=== PATIENT | female | born 1960 | race Caucasian/White ===

== ENCOUNTER 2019-03-04 17:49 | Inpatient (IN) | payer BC ==
[2019-03-04] MEDS ORDERED: ENOXAPARIN 100 MG/ML SYR SQ ONE (18:13)
[2019-03-04] MEDS ORDERED: METOPROLOL TAR 50 MG TAB ONE (18:13)
[2019-03-04] MEDS ORDERED: NA CHLORIDE 0.9% 1,000 ML ONE (18:14)
[2019-03-04] MEDS ORDERED: METOPROLOL TARTRATE 5 MG/5 ML INJ IV ONE (18:14)
[2019-03-04 18:32] LABS: Protime INR 0.97
[2019-03-04 18:33] LABS: Absolute Lymphocytes (CBC) 2.3 K/uL (0.7-4.9); Basophils % 0.8 % (0-1.3); Hematocrit 43.6 % (36.0-45.0); Lymphocytes % 21.7 % (15.3-44.8); MPV 8.5 fL (7.6-11.3); RBC Red Blood Cell Count 5.23 M/uL (3.86-4.86)
--- NOTE | 2019-03-04 18:46 | RAD REPORT ---
EXAM DESCRIPTION: RAD - Chest Single View - 03/04/2019 6:22 pm CLINICAL HISTORY: Chest pain, palpitations COMPARISON: None. TECHNIQUE: AP portable chest image was obtained 1818 hours . FINDINGS: Lungs are clear. Heart and vasculature are normal. No measurable pleural effusion and no p neumothorax. No acute bony abnormality seen. No acute aortic findings suspected. IMPRESSION: No acute cardiopulmonary process.
[2019-03-04 18:56] LABS: ALT/SGPT 28 U/L (12-78); AST/SGOT 24 U/L (15-37); Albumin 3.5 g/dL (3.4-5.0); Alkaline Phosphatase 78 U/L (45-117); BUN Blood Urea Nitrogen 26 mg/dL (7-18); Bicarbonate 31 mmol/L (21-32); Bilirubin Direct < 0.1 mg/dL (0-0.2); Bilirubin Total 0.3 mg/dL (0.2-1.0); Glucose Level 88 mg/dL (74-106); Magnesium 2.5 mg/dL (1.8-2.4); NT PRO-BNP 87 pg/mL (<125); Potassium 3.5 mmol/L (3.5-5.1); Protein, Total 7.6 g/dL (6.4-8.2); Sodium Level 144 mmol/L (136-145); Troponin (Emerg Dept Use Only) < 0.02 ng/mL (0.0-0.045)
--- NOTE | 2019-03-04 19:55 | ER ---
Nurse's Notes [facility] Name: Suzanne Victoria Age: 58 yrs Sex: Female : 1960 Arrival Date: 03/04/2019 Time: 17:54 Bed 18 Private MD: Diagnosis: Atrial fibrillation and flutter-new onset Presentation: 03/04 17:55 Presenting complaint: Patient states: my daughter did my EKG around 4 pm today and it hj showed Afib on the reading, i wasn't diagnosed with that before, never took blood thinners; reports chest pain of 1/10; denies SOB;. Transition of care: patient was not received from another setting of care. Onset of symptoms was March 04, 2019. Risk Assessment: Do you want to hurt yourself or someone else? Patient reports no desire to harm self or others. Initial Sepsis Screen: Does the patient meet any 2 criteria? No. Patient's initial sepsis screen is negative. Does the patient have a suspected source of infection? No. Patient's initial sepsis screen is negative. Care prior to arrival: None. 17:55 Method Of Arrival: Ambulatory 17:55 Acuity: KATHERINE 3 hj 18:10 Acuity: KATHERINE 2 iw Historical: - Allergies: 17:57 PENICILLINS; hj - PMHx: 17:57 Thyroid problem; hj - PSHx: 17:57 None; hj - Immunization history:: Adult Immunizations up to date. - Social history:: Smoking status: unknown. - Ebola Screening: : No symptoms or risks identified at this time. Screenin:00 Abuse screen: Denies injuries from another. Nutritional screening: No deficits noted. tr5 Tuberculosis screening: No symptoms or risk factors identified. Fall Risk None identified. Assessment: 18:00 General: Appears in no apparent distress. Behavior is calm, cooperative, appropriate tw2 for age. Pain: Denies pain. Neuro: Level of Consciousness is awake, alert, obeys commands, Oriented to person, place, time, situation. Cardiovascular: Heart tones S1 S2 Patient's skin is warm and dry. Cardiovascular: Reports palpitations. Respiratory: Airway is patent Respiratory effort is even, unlabored, Respiratory pattern is regular, symmetrical, Breath sounds are clear bilaterally. GI: No signs and/or symptoms were reported involving the gastrointestinal system. Abdomen is round non-distended, obese, Bowel sounds present X 4 quads. : No signs and/or symptoms were reported regarding the genitourinary system. EENT: No signs and/or symptoms were reported regarding the EENT system. Derm: No signs and/or symptoms reported regarding the dermatologic system. Musculoskeletal: Range of motion: intact in all extremities. 19:00 Reassessment: Patient and/or family updated on plan of care and expected duration. Pain tr5 level reassessed. Patient is alert, oriented x 3, equal unlabored respirations, skin warm/dry/pink. 20:00 Reassessment: Patient appears in no apparent distress at this time. No changes from tr5 previously documented assessment. Vital Signs: 17:57 BP 146 / 91; Pulse 101; Resp 18; Temp 98.4(O); Pulse Ox 98% on R/A; Weight 97.52 kg; hj Height 5 ft. 7 in. (170.18 cm); Pain 1/10; 18:34 BP 133 / 81; Pulse 107; Resp 18; Pulse Ox 99% on R/A; tw2 19:30 BP 141 / 103; Pulse 97; Resp 16; Pulse Ox 99% on R/A; tr5 20:30 BP 130 / 89; Pulse 83; Resp 15; Pulse Ox 99% on R/A; tr5 17:57 Body Mass Index 33.67 (97.52 kg, 170.18 cm) ED Course: 17:54 Patient arrived in ED. mr 17:56 Triage completed. hj 17:57 Arm band placed on right wrist. hj 18:02 Benigno Michele NP is PHCP. pm1 18:03 Nomi Tovar MD is Attending Physician. pm1 18:03 Raisa Cespedes, TORITO is Primary Nurse. tw2 18:15 EKG done, by ED staff, reviewed by Juan Jose Jennings MD. mh5 18:16 Patient has correct armband on for positive identification. Placed in gown. Bed in low mh5 position. Call light in reach. Side rails up X 1. Warm blanket given. monitoring tech on. Pulse ox on. NIBP on. 18:22 X-ray completed. Portable x-ray completed in exam room. Patient tolerated procedure az well. 18:23 XRAY Chest (1 view) In Process Unspecified. EDMS 18:59 Report given to TORITO Lambert. tw2 19:00 No provider procedures requiring assistance completed. Patient admitted, IV remains in tr5 place. 19:30 Assisted to bathroom. tr5 19:54 Franco Flannery DO is Hospitalizing Provider. pm1 Administered Medications: 18:15 Drug: Lopressor 5 mg {Note: BP 119/74 hr 82.} Route: IVP; Site: right antecubital; tw2 18:15 Drug: Lopressor (metoprolol TARTRATE) 50 mg Route: PO; tw2 18:15 Drug: NS 0.9% 1000 ml Route: IV; Rate: 1000 ml; Site: right antecubital; tw2 18:20 Drug: Lopressor 5 mg {Note: BP 145/88 hr 126.} Route: IVP; Site: right antecubital; tw2 18:25 Drug: Lopressor 5 mg {Note: bp 118/98 hr 117.} Route: IVP; Site: right antecubital; tw2 18:27 Drug: Lovenox 1 mg/kg Route: Sub-Q; Site: right lower abdomen; tw2 Outcome: 19:54 Decision to Hospitalize by Provider. pm1 21:12 Admitted to Med/surg accompanied by tech, via wheelchair, with chart, Report called to david Suh RN 21:12 Condition: stable 21:12 Instructed on the need for admit. 21:52 Patient left the ED. tr5 Signatures: Dispatcher [employer] EDNH Susie Turcios Irene, RN RN iw Joaquin, Henry, RN RN hj Marinas, Patrick, YUDITH SENIOR POLICY ASSOCIATE pm1 Raisa Cespedes RN RN 2 Elisa Lindsay [facility] Nimo Seo Tommie, RN RN tr5
--- NOTE | 2019-03-04 19:56 | EDPHYS ---
Physician Documentation [facility] Name: Suzanne Victoria Age: 58 yrs Sex: Female : 1960 Arrival Date: 03/04/2019 Time: 17:54 Bed 18 Private MD: ED Physician Nomi Tovar HPI: 03/04 18:15 This 58 yrs old Female presents to ER via Ambulatory with complaints of Afib. pm1 18:15 The patient presents with a history of heart racing. Context: The symptoms occur at pm1 rest. Onset: The symptoms/episode began/occurred today, at 16:15. Duration: The patient or guardian reports a single episode, that is still ongoing. Modifying factors: The symptoms are aggravated by nothing. The symptoms are alleviated by nothing. Associated signs and symptoms: Pertinent positives: chest pain, Pertinent negatives: fever, lightheadedness, nausea, SOB, syncope, near-syncope, vertigo, vomiting. Severity of symptoms: in the emergency department the symptoms are unchanged Pain is currently a 1 / 10. The patient has experienced similar episodes in the past, multiple times, reports feeling of palpitations since the age of 17. The patient has not recently seen a physician. Patient presents with ECG from the locations that her daughter works. ECG atrial fibrillation with RVR. 18:15 Found out that she had a thyroid issue 1 month ago. Went to lab draw place and found pm1 her TSH was low. Historical: - Allergies: 17:57 PENICILLINS; hj - PMHx: 17:57 Thyroid problem; hj - PSHx: 17:57 None; hj - Immunization history:: Adult Immunizations up to date. - Social history:: Smoking status: unknown. - Ebola Screening: : No symptoms or risks identified at this time. ROS: 18:15 Constitutional: Negative for fever, chills, and weight loss, Eyes: Negative for injury, pm1 pain, redness, and discharge, ENT: Negative for injury, pain, and discharge, Neck: Negative for injury, pain, and swelling. 18:15 Respiratory: Negative for shortness of breath, cough, wheezing, and pleuritic chest pain, Abdomen/GI: Negative for abdominal pain, nausea, vomiting, diarrhea, and constipation, Back: Negative for injury and pain, : Negative for injury, bleeding, discharge, and swelling, MS/Extremity: Negative for injury and deformity, Skin: Negative for injury, rash, and discoloration, Neuro: Negative for headache, weakness, numbness, tingling, and seizure. 18:15 Cardiovascular: Positive for chest pain, palpitations, Negative for edema, orthopnea. Exam: 18:15 Constitutional: This is a well developed, well nourished patient who is awake, alert, pm1 and in no acute distress. Head/Face: Normocephalic, atraumatic. Chest/axilla: Normal chest wall appearance and motion. Nontender with no deformity. No lesions are appreciated. 18:15 Respiratory: Lungs have equal breath sounds bilaterally, clear to auscultation and percussion. No rales, rhonchi or wheezes noted. No increased work of breathing, no retractions or nasal flaring. Abdomen/GI: Soft, non-tender, with normal bowel sounds. No distension or tympany. No guarding or rebound. No evidence of tenderness throughout. Back: No spinal tenderness. No costovertebral tenderness. Full range of motion. Skin: Warm, dry with normal turgor. Normal color with no rashes, no lesions, and no evidence of cellulitis. MS/ Extremity: Pulses equal, no cyanosis. Neurovascular intact. Full, normal range of motion. 18:15 Neck: Thyroid: enlargement, that is moderate. 18:15 Cardiovascular: Rate: tachycardic, Rhythm: irregular, Pulses: no pulse deficits are appreciated, Edema: is not appreciated. 18:15 Neuro: Orientation: is normal, Motor: is normal, Sensation: is normal, no obvious gross deficits. Vital Signs: 17:57 BP 146 / 91; Pulse 101; Resp 18; Temp 98.4(O); Pulse Ox 98% on R/A; Weight 97.52 kg; hj Height 5 ft. 7 in. (170.18 cm); Pain 1/10; 18:34 BP 133 / 81; Pulse 107; Resp 18; Pulse Ox 99% on R/A; tw2 19:30 BP 141 / 103; Pulse 97; Resp 16; Pulse Ox 99% on R/A; tr5 20:30 BP 130 / 89; Pulse 83; Resp 15; Pulse Ox 99% on R/A; tr5 17:57 Body Mass Index 33.67 (97.52 kg, 170.18 cm) MDM: 18:09 Patient medically screened. pm1 19:53 Data reviewed: vital signs. Data interpreted: Pulse oximetry: on room air is 99 %. pm1 Interpretation: normal. Physician consultation: MD Steen was called at 19:53, was contacted at 19:53, regarding admission, patient's condition, and will see patient in ED. 03/04 18:12 Order name: Basic Metabolic Panel; Complete Time: 19:03 pm1 03/04 18:12 Order name: CBC with Diff; Complete Time: 18:43 pm1 03/04 18:12 Order name: LFT's; Complete Time: 19:03 pm1 03/04 18:12 Order name: Magnesium; Complete Time: 19:03 pm1 03/04 18:12 Order name: NT PRO-BNP; Complete Time: 19:03 pm1 03/04 18:12 Order name: PT-INR; Complete Time: 18:43 pm1 03/04 18:12 Order name: Troponin (emerg Dept Use Only); Complete Time: 19:03 pm1 03/04 18:12 Order name: XRAY Chest (1 view); Complete Time: 18:49 pm1 03/04 18:12 Order name: TSH; Complete Time: 19:03 pm1 03/04 21:00 Order name: T4 Free; Complete Time: 22:31 EDMS 03/04 21:01 Order name: Potassium EDMS 03/04 17:58 Order name: EKG - Nurse/Tech; Complete Time: 18:17 hj 03/04 18:12 Order name: EKG; Complete Time: 18:14 pm1 03/04 18:12 Order name: Cardiac monitoring; Complete Time: 18:13 pm1 03/04 18:12 Order name: IV Saline Lock; Complete Time: 18:13 pm1 03/04 18:12 Order name: Labs collected and sent; Complete Time: 18:31 pm1 03/04 18:12 Order name: O2 Per Protocol; Complete Time: 18:31 pm1 03/04 18:12 Order name: O2 Sat Monitoring; Complete Time: 18:31 pm1 Administered Medications: 18:15 Drug: Lopressor 5 mg {Note: BP 119/74 hr 82.} Route: IVP; Site: right antecubital; tw2 18:15 Drug: Lopressor (metoprolol TARTRATE) 50 mg Route: PO; tw2 18:15 Drug: NS 0.9% 1000 ml Route: IV; Rate: 1000 ml; Site: right antecubital; tw2 18:20 Drug: Lopressor 5 mg {Note: BP 145/88 hr 126.} Route: IVP; Site: right antecubital; tw2 18:25 Drug: Lopressor 5 mg {Note: bp 118/98 hr 117.} Route: IVP; Site: right antecubital; tw2 18:27 Drug: Lovenox 1 mg/kg Route: Sub-Q; Site: right lower abdomen; tw2 Disposition: 03/04/19 19:54 Hospitalization ordered by Franco Flannery for Inpatient Admission. Preliminary diagnosis is Atrial fibrillation and flutter - new onset. - Bed requested for Telemetry/MedSurg (Inpatient). - Status is Inpatient Admission. tr5 - Condition is Stable. - Problem is new. - Symptoms have improved. UTI on Admission? No Addendum: 03/10/2019 10:17 Co-signature as Attending Physician, Nomi Tovar MD. g s Signatures: Dispatcher [employer] EDMS Zaid Cuellar RN RN hj Benigno Michele, YUDITH SNACK STEWARD pm1 Raisa Cespedes RN RN tw2 Nomi Tovar MD MD Jerzy Weaver, RN RN rr5 Girish Gold RN RN tr5 Corrections: (The following items were deleted from the chart) 03/04 21:03 19:54 Hospitalization Ordered by Franco Flannery DO for Inpatient Admission. Preliminary rr5 diagnosis is Atrial fibrillation and flutter - new onset. Bed requested for Telemetry/MedSurg (Inpatient). Status is Inpatient Admission. Condition is Stable. Problem is new. Symptoms have improved. UTI on Admission? No. pm1 21:52 21:03 03/04/2019 19:54 Hospitalization Ordered by Franco Flannery DO for Inpatient tr5 Admission. Preliminary diagnosis is Atrial fibrillation and flutter - new onset. Bed requested for Telemetry/MedSurg (Inpatient). Status is Inpatient Admission. Condition is Stable. Problem is new. Symptoms have improved. UTI on Admission? No. rr5
--- NOTE | 2019-03-04 20:34 | P.HP ---
Certification for Inpatient With expected LOS: <2 Midnights Practitioner: I am a practitioner with admitting privileges, knowledge of patient current condition, hospital course, and medical plan of care. Services: Services provided to patient in accordance with Admission requirements found in Title 42 Section 412.3 of the Code of Federal Regulations Patient History Date of Service: 03/05/19 Primary Care Provider: None Reason for admission: Palpitation. Rapid heart rate History of Present Illness: 58-year-old woman with no known past history presented to the emergency department due to palpitations and rapid heart rate. The patient reports occasional transient palpitation that has been present for about 2 weeks. She experienced another episode this afternoon which persisted for hours. She went to a clinic, where she was found to be in atrial fibrillation with rapid ventricular rate a rate of 150 beats/min by EKG. Patient was then referred to the emergency department. She was diagnosed with hyperthyroidism about 1 month ago. She is noted to have goitre. She has not been on any medication and has not seen any physician or manager of revenue for the goitre. In the ED, EKG demonstrated atrial fibrillation with RVR at 150 beats per min. TSH is 0.01. Chest x-ray shows no acute disease, troponins negative. Her heart rate partially responded to a dose of IV Lopressor and oral metoprolol 50 mg x1 dose. Patient is placed under observation for further evaluation and management. Allergies Penicillins Allergy (Verified 03/04/19 22:17) Unkown Home Medications: NK [No Home Meds] 03/04/19 - Past Medical/Surgical History Diabetic: No -: Goitre -: Hyperthyroidism Past Surgical History: Patient denies surgical history - Family History Mother -: Other (see notes) (Hypothyroidism) Sister -: Other (see notes) (GI cancer. She is also suspected to have thyroid cancer) - Social History Smoking Status: Never smoker Smoking therapy provided: No Alcohol use: No CD- Drugs: No Review of Systems Other: General: No fever, no malaise, no unintentional weight loss. Eyes: No eye discharge, Respiratory: No cough, no shortness of breath. CVS: No chest pain, no lightheadedness. GI: No abdominal pain, no nausea no vomit, no constipation, no diarrhea. Genitourinary: No dysuria, no urinary frequency, no incontinence, no hematuria. Musculoskeletal: No joint pains, or joint swelling, no gait instability. Neurology: No headache, no asymmetric, weakness, no problem with swallowing. Endocrine: No hot flashes, no visual disturbance. She does have her eyelids swollen. No proptosis. Except as documented, all other systems reviewed and negative. Physical Examination - Physical Exam General: Alert, In no apparent distress, Oriented x3 HEENT: Atraumatic, Normocephalic, PERRLA, Mucous membr. moist/pink, EOMI Neck: Supple, 2+ carotid pulse no bruit, JVD not distended, Thyromegaly Respiratory: Clear to auscultation bilaterally, Normal air movement Cardiovascular: No edema, Normal pulses, No murmurs, Irregular heart rate/rhythm Capillary refill: <2 Seconds Gastrointestinal: Normal bowel sounds, Soft and benign, Non-distended, No tenderness Musculoskeletal: No clubbing, No swelling, No tenderness Integumentary: No rashes, No significant lesion Neurological: Normal gait, Normal strength at 5/5 x4 extr, Cranial nerves 3-12 intact, Normal affect Lymphatics: No axilla or inguinal lymphadenopathy - Studies Laboratory Data (last 24 hrs) 03/04/19 18:10: PT 11.5, INR 0.97 03/04/19 18:10: WBC 10.5, Hgb 14.1, Hct 43.6, Plt Count 301 03/04/19 18:10: Sodium 144, Potassium 3.5, BUN 26 H, Creatinine 0.70, Glucose 88 , Magnesium 2.5 H, Total Bilirubin 0.3, AST 24, ALT 28, Alkaline Phosphatase 78 TSH: 0.01 Imagings Data: Chest x-ray: No acute disease EKG: atrial fibrillation with RVR. Assessment and Plan - Problems (Diagnosis) (1) Atrial fibrillation with RVR Current Visit: Yes Status: Acute (2) Hyperthyroidism Current Visit: Yes Status: Acute - Plan Place under observation in telemetry IV hydration with normal saline Optimize electrolyte. Keep potassium greater than 4 and magnesium greater than 2. Oral metoprolol 25 mg b.i.d. and titrate. Echocardiogram. Check lipid profile. Cardiology consult Outpatient treatment for hyperthyroidism. Patient has been informed to see an manager of revenue for further evaluation and management of her hyperthyroidism. Discharge Plan: Home Plan to discharge in: 24 Hours - Advance Directives Does patient have a Living Will: No Does patient have a Durable POA for Healthcare: No - Code Status/Comfort Care Code Status Assessed: Yes Code Status: Full Code Time Spent Managing Pts Care (In Minutes): 60
[2019-03-04] MEDS ORDERED: ONDANSETRON 4 MG/2 ML VIAL IV PRN (20:53)
[2019-03-04] MEDS ORDERED: METOPROLOL TARTRATE 5 MG/5 ML INJ IV PRN (20:57)
[2019-03-04] MEDS ORDERED: POTASSIUM CL SA 10 MEQ TAB PO ONE (20:59)
[2019-03-04] MEDS: NA CHLORIDE 0.9% 1,000 ML IV SCH (23:02)
[2019-03-05 00:26] LABS: Urine Appearance CLEAR; Urine Bilirubin NEGATIVE (NEG); Urine Blood NEGATIVE (NEG); Urine Color YELLOW; Urine Glucose NEGATIVE (NEG); Urine Protein NEGATIVE (NEG); Urine Specific Gravity <=1.005 (1.005-1.030); Urine Urobilinogen 0.2 mg/dL (0.2-1.0)
[2019-03-05 00:29] LABS: Urine Microscopic Reflex NO UMIC
[2019-03-05] MEDS ORDERED: METOPROLOL TAR 25 MG TAB PO SCH (06:00)
[2019-03-05 06:15] LABS: Magnesium 2.3 mg/dL (1.8-2.4); Potassium 4.3 mmol/L (3.5-5.1)
--- NOTE | 2019-03-05 07:47 | EKG ---
Test Date: 2019-03-04 Test Time: 18:10:30 Neurosurgery Spine Physician: ED MEASUREMENT RESULTS: Intervals: Rate: 166 [place]: QRSD: 90 QT: 290 QTc: 481 [place]: P: [place]: QRS: 61 T: 31 INTERPRETIVE STATEMENTS: Atrial fibrillation with rapid ventricular response Nonspecific ST abnormality, probably digitalis effect Abnormal ECG Compared to ECG 03/04/2019 18:09:53 No significant changes Electronically Signed On 03-05-19 07:46:18 CDT by Guillaume Gonzalez
--- NOTE | 2019-03-05 07:47 | EKG ---
Test Date: 2019-03-04 Test Time: 18:09:53 Character Impersonator: ED MEASUREMENT RESULTS: Intervals: Rate: 164 [place]: QRSD: 88 QT: 286 QTc: 472 [place]: P: [place]: QRS: 67 T: 13 INTERPRETIVE STATEMENTS: Atrial fibrillation with rapid ventricular response Nonspecific ST abnormality, probably digitalis effect Abnormal ECG No previous ECG available for comparison Electronically Signed On 03-05-19 07:46:22 CDT by Guillaume Gonzalez
[2019-03-05] MEDS: NA CHLORIDE 0.9% 1,000 ML IV SCH (08:00)
[2019-03-05] MEDS: ENOXAPARIN 100 MG/ML SYR SQ SCH ×2 (08:14→20:15)
[2019-03-05] MEDS ORDERED: ENOXAPARIN 40 MG/0.4 ML SQ SCH (09:00)
[2019-03-05 09:09] LABS: T3 Free 3.47 pg/mL (2.18-3.98); T4,Total 13.3 ug/dL (4.8-13.9)
--- NOTE | 2019-03-05 10:08 | ECHO ---
HEIGHT: 5 ft 8 in WEIGHT: 222 lb 4.8 oz DATE OF STUDY: 03/05/[address]: stanley dee 2-DIMENSIONAL: YES M.MODE: YES DOPPLER: YES COLOR FLOW: YES TDS: NO PORTABLE: NO DEFINITY: NO BUBBLE STUDY: NO DIAGNOSIS: ATRIAL FIBRILLATION CARDIAC HISTORY: CATHERIZATION: NO SURGERY: NO PROSTHETIC VALVE: NO PACEMAKER: NO MEASUREMENTS (cm) DIASTOLIC (NORMALS) SYSTOLIC (NORMALS) IVSd 1.3 (0.6-1.2) LA Diam 3.8 (1.9-4.0) LVEF 68% LVIDd 4.0 (3.5-5.7) LVIDs 2.5 (2.0-3.5) %FS 38% LVPWd 1.4 (0.6-1.2) Ao Diam 2.8 (2.0-3.7) 2 DIMENSIONAL ASSESSMENT: RIGHT ATRIUM: NORMAL LEFT ATRIUM: NORMAL RIGHT VENTRICLE: NORMAL LEFT VENTRICLE: NORMAL TRICUSPID VALVE: NORMAL MITRAL VALVE: NORMAL PULMONIC VALVE: NORMAL AORTIC VALVE: NORMAL PERICARDIAL EFFUSION: NONE AORTIC ROOT: NORMAL LEFT VENTRICULAR WALL MOTION: NORMAL DOPPLER/COLOR FLOW: MILD TRICUSPID REGURGITATION. NORMAL RIGHT VENTRICULAR SYSTOLIC PRESSURE. COMMENTS: NORMAL 2D ECHOCARDIOGRAM. MILD TRICUSPID REGURGITATION. ATRIAL FIBRILLATION 100-110 BEATS PER MINUTE. TECHNOLOGIST: Erlinda VIVAR
--- NOTE | 2019-03-05 11:28 | P.PN ---
Subjective Date of Service: 03/05/19 Primary Care Provider: None Chief Complaint: Palpitation. Rapid heart rate Subjective: Doing well (Patient doing well this time. Still in atrial fibrillation. Patient has history of hyperthyroidism. She is not seen Endocrinology.) Physical Examination - Vital Signs Temperature: 97.7 F Blood Pressure: 119/59 Pulse: 85 Respirations: 18 Pulse Ox (%): 96 - Physical Exam General: Alert, In no apparent distress, Oriented x3, Cooperative HEENT: Atraumatic Neck: Supple Respiratory: Clear to auscultation bilaterally, Normal air movement Cardiovascular: Irregular heart rate/rhythm (Atrial fibrillation, rate around 100) Gastrointestinal: Normal bowel sounds, Soft and benign, Non-distended, No tenderness, No masses, No rebound, No guarding Musculoskeletal: No erythema, No tenderness, No warmth Integumentary: No tenderness/swelling, No erythema, No warmth, No cyanosis Neurological: Normal speech, Normal strength at 5/5 x4 extr, Normal tone, Normal affect - Studies Laboratory Data (last 24 hrs) 03/04/19 21:00: Potassium Cancelled 03/04/19 18:10: PT 11.5, INR 0.97 03/04/19 18:10: WBC 10.5, Hgb 14.1, Hct 43.6, Plt Count 301 03/04/19 18:10: Sodium 144, Potassium 3.5, BUN 26 H, Creatinine 0.70, Glucose 88 , Magnesium 2.5 H, Total Bilirubin 0.3, AST 24, ALT 28, Alkaline Phosphatase 78 Medications List Reviewed: Yes Assessment & Plan Discharge Plan: Home Plan to discharge in: 24 Hours Physician Review Additional Text: Impression: New onset atrial fibrillation with RVR Hyperthyroidism Hyperlipidemia Obesity, BMI 33 Plan: New onset atrial fibrillation with RVR: Patient remains in atrial fibrillation. Case discussed at length with cardiology. Cardiology has started patient on Betapace. Patient now on anti coagulation therapy at 1 milligram/kilogram subcu twice daily. Hopefully patient can revert back to normal sinus rhythm. If patient still in Atrial fibrillation tomorrow, cardiology will consider cardioversion. Anticipate discharge in the next 24-48 hr pending clinical improvement and cleared by cardiology. Hyperthyroidism: Patient with untreated hyperthyroidism. Will recommend endocrinology evaluation as an outpatient. Patient will require thyroid uptake scan to confirm. If abnormal patient will require outpatient thyroid ablation. Hyperlipidemia: LDL elevated. Will start Lipitor. Obesity, BMI 33: Continue to address lifestyle modification education. Time Spent Managing Pts Care (In Minutes): 55
[2019-03-05] MEDS ORDERED: NACHLORIDE 0.45% 1,000 ML IV SCH (12:00)
--- NOTE | 2019-03-05 12:56 | CON ---
History Of Present Illness: Ms. Huizar is 58. She started to feel her heart race. She has had th at happened numerous times in the past, but never sought medical attention. All the spells would las t 1 or 2 minutes and then go away. Yesterday, it did not go away. Her heart rate was above 150. Loy de la torre came to the ER, was found to be in atrial fibrillation. It is the first time she has had that diag nosis made. She is multigravida. Takes no home medications. Does not have diabetes, hypertension, or dyslipidemia. She did some blood work, not on a physician's order, and she tells me her TSH was l ow. She does not have copies of the report better readable. She says she will bring those in later or have her daughter bring them in. As of now, a free T4 level was elevated and the other testing of her thyroid function is pending. She has mildly elevated LDL at 128. Her HDL is 36, triglycerides 173, blood sugar 89, creatinine 0.68. Hemoglobin 14.1, white blood cell count 10.5. Physical Examination: Vital Signs: She is 5 feet 8 inches, 222 pounds. General: Alert, oriented, pleasant, cooperative, not in distress. Lungs: Clear. Heart: Irregularly irregular, going about 80 times per minute. Abdomen: Soft. Extremities: Trace edema. Distal pulses normal. Social History: She uses no tobacco, very rare alcohol. No illegal drugs. Impression: The patient has atrial fibrillation, probably from thyroid disease. We will await the o ther thyroid test, but she probably needs to be on methimazole or propylthiouracil until she sees an repair department supervisor. She needs to be on Betapace and full-dose anticoagulation, and if she is still in atrial fibrillation tomorrow after receiving these medicines, we can consider a cardioversion. SH/MODL Voice ID: [id number] Report ID: [id number]
[2019-03-05] MEDS: SOTALOL HCL 80 MG TAB PO SCH (17:04)
[2019-03-05] MEDS ORDERED: ATORVASTATIN 40 MG TAB PO SCH (21:00)
[2019-03-06] MEDS: SOTALOL HCL 80 MG TAB PO SCH (05:10)
[2019-03-06 06:07] LABS: Magnesium 2.3 mg/dL (1.8-2.4); Potassium 4.3 mmol/L (3.5-5.1)
[2019-03-06] MEDS: ENOXAPARIN 100 MG/ML SYR SQ SCH (08:18)
--- NOTE | 2019-03-06 09:47 | P.DS ---
Admission Date: 03/05/19 Discharge Date: 03/06/19 Primary Care Provider: None Disposition: ROUTINE DISCHARGE Discharge Condition: GOOD Reason for Admission: Palpitation. Rapid heart rate Consultations: Cardiology-Dr. Gonzalez/Dr. Gamez Procedures: CXR: FINDINGS: Lungs are clear. Heart and vasculature are normal. No measurable pleural effusion and no pneumothorax. No acute bony abnormality seen. No acute aortic findings suspected. IMPRESSION: No acute cardiopulmonary process. ECHO: EF 68% LEFT VENTRICULAR WALL MOTION: NORMAL DOPPLER/COLOR FLOW: MILD TRICUSPID REGURGITATION. NORMAL RIGHT VENTRICULAR SYSTOLIC PRESSURE. COMMENTS: NORMAL 2D ECHOCARDIOGRAM. MILD TRICUSPID REGURGITATION. ATRIAL FIBRILLATION 100-110 BEATS PER MINUTE. Medical Problem List: New onset atrial fibrillation with RVR, now normal sinus rhythm Hyperthyroidism Hyperlipidemia Obesity, BMI 33 Brief History of Present Illness: 58-year-old female presented to the emergency room with palpitation. Patient found to have atrial fibrillation with RVR. Patient was admitted for further evaluation. Hospital Course: Patient presented with new onset atrial fibrillation with RVR. Patient seen and evaluated by Cardiology. Betapace was started. Patient converted to normal sinus rhythm. Patient has remained stable. At discharge she is without any significant palpitation, chest pain or shortness of breath. Patient has done well during the course of her stay. At discharge patient will continue with Betapace 80 mg 1 pill twice daily. Patient will also continue with chronic anti coagulation therapy Eliquis 5 mg twice daily. Education on Betapace and Eliquis provided. Patient will follow up with cardiology in 1-2 weeks to follow up this hospitalization. Patient has underlying hyperthyroidism. This has been untreated and remains stable at this time. No need for anti hyperthyroidism medication at this time. Recommend close follow up with Endocrinology in the next 1-2 weeks to establish care and further treat. Patient will need require thyroid uptake scan to confirm, then likely thyroid ablation therapy. Education on hyperthyroidism provided. Patient with hyperlipidemia. LDL elevated at 128. Lipitor was initiated. At discharge, patient will continue with Lipitor 10 mg daily. Recommend to recheck fasting lipid panel in 2-4 weeks to monitor her progress. Further adjustment can be done by her PCP. Patient with obesity, BMI 33. Lifestyle modification education provided. Vital Signs/Physical Exam: Temp Pulse Resp BP Pulse Ox 98.2 F 71 17 127/67 96 03/06/19 08:00 03/06/19 08:00 03/06/19 08:00 03/06/19 08:00 03/06/19 08:00 General: Alert, In no apparent distress, Cooperative HEENT: Atraumatic Neck: Supple Respiratory: Clear to auscultation bilaterally, Normal air movement Cardiovascular: Normal pulses, Regular rate/rhythm Gastrointestinal: Normal bowel sounds, Soft and benign, Non-distended, No tenderness, No masses, No rebound, No guarding Musculoskeletal: No erythema, No tenderness, No warmth Integumentary: No tenderness/swelling, No erythema, No warmth, No cyanosis Neurological: Normal speech, Normal strength at 5/5 x4 extr, Normal tone, Normal affect Lymphatics: No axilla or inguinal lymphadenopathy Laboratory Data at Discharge: WBC 10.5 K/uL (4.3-10.9) 03/04/19 18:10 Hgb 14.1 g/dL (12.0-15.0) 03/04/19 18:10 Hct 43.6 % (36.0-45.0) 03/04/19 18:10 Plt Count 301 K/uL (152-406) 03/04/19 18:10 PT 11.5 SECONDS (9.5-12.5) 03/04/19 18:10 INR 0.97 03/04/19 18:10 Sodium 144 mmol/L (136-145) 03/06/19 05:30 Potassium 4.3 mmol/L (3.5-5.1) 03/06/19 05:30 BUN 23 mg/dL (7-18) H 03/06/19 05:30 Creatinine 0.73 mg/dL (0.55-1.3) 03/06/19 05:30 Glucose 99 mg/dL (74-106) 03/06/19 05:30 Magnesium 2.3 mg/dL (1.8-2.4) 03/06/19 05:30 Total Bilirubin 0.3 mg/dL (0.2-1.0) 03/04/19 18:10 AST 24 U/L (15-37) 03/04/19 18:10 ALT 28 U/L (12-78) 03/04/19 18:10 Alkaline Phosphatase 78 U/L (45-117) 03/04/19 18:10 Triglycerides 173 mg/dL (<150) H 03/05/19 05:25 Cholesterol 199 mg/dL (<200) 03/05/19 05:25 HDL Cholesterol 36 mg/dL (40-60) L 03/05/19 05:25 Cholesterol/HDL Ratio 5.53 03/05/19 05:25 Home Medications: Apixaban [Eliquis] 5 mg PO BID #60 tablet 03/06/19 Atorvastatin Calcium [Lipitor] 10 mg PO BEDTIME #30 tab 03/06/19 Sotalol HCl [Betapace*] 80 mg PO BID 6AM 6PM #60 tab 03/06/19 New Medications: Apixaban [Eliquis] 5 mg PO BID #60 tablet Atorvastatin Calcium [Lipitor] 10 mg PO BEDTIME #30 tab Sotalol HCl [Betapace*] 80 mg PO BID 6AM 6PM #60 tab Patient Discharge Instructions: 1. Follow up with a PCP to establish care and follow up this hospitalization. 2. Patient presented with new onset atrial fibrillation with RVR. Patient seen and evaluated by Cardiology. Betapace was started. Patient converted to normal sinus rhythm. Patient has remained stable. At discharge she is without any significant palpitation, chest pain or shortness of breath. Patient has done well during the course of her stay. At discharge patient will continue with Betapace 80 mg 1 pill twice daily. Patient will also continue with chronic anti coagulation therapy Eliquis 5 mg twice daily. Education on Betapace and Eliquis provided. Patient will follow up with cardiology in 1-2 weeks to follow up this hospitalization. 3. Patient has underlying hyperthyroidism. This has been untreated and remains stable at this time. No need for anti hyperthyroidism medication at this time. Recommend close follow up with Endocrinology in the next 1-2 weeks to establish care and further treat. Patient will need require thyroid uptake scan to confirm, then likely thyroid ablation therapy. Education on hyperthyroidism provided. 4. Patient with hyperlipidemia. LDL elevated at 128. Lipitor was initiated. At discharge, patient will continue with Lipitor 10 mg daily. Recommend to recheck fasting lipid panel in 2-4 weeks to monitor her progress. Further adjustment can be done by her PCP. 5. Patient with obesity, BMI 33. Lifestyle modification education provided. Diet: AHA Activity: Ad love Time spent managing pt's care (in minutes): 55
--- NOTE | 2019-03-06 13:50 | EKG ---
Test Date: 2019-03-05 Test Time: 20:09:54 Program Evaluation Consultant: RT-O MEASUREMENT RESULTS: Intervals: Rate: 76 RI: 174 QRSD: 86 QT: 398 QTc: 447 Pilger: P: 62 RI: 174 QRS: 55 T: 62 INTERPRETIVE STATEMENTS: Normal sinus rhythm Possible Left atrial enlargement Low voltage QRS Nonspecific ST abnormality Abnormal ECG Compared to ECG 03/04/2019 18:10:30 Low QRS voltage now present Atrial fibrillation no longer present ST (T wave) deviation still present Electronically Signed On 03-06-19 13:47:36 CDT by Ernesto Gamez
--- NOTE | 2019-03-06 22:07 | PN ---
Date of Progress Note: 03/06/2019 Ms. Huizar is a 58-year-old woman. Dr. Gonzalez saw her yesterday 03/05/2019 for atrial fibrillation . She was placed on Betapace. Today, she is in a normal rhythm. Echocardiogram was normal. Thyroi d issues are to be addressed. She is seen by Endocrinology. I am comfortable with her going home on Betapace and Xarelto. Hopefully, when her hypothyroidism is corrected, maybe the atrial fibrillatio n would not be an issue. We have been asked to see her in the office in the next few weeks. I think doing a stress test as an outpatient may be reasonable. Her thyroid is corrected. She does not hav e any more atrial fibrillation and maybe we will be able to get her off the Betapace and Xarelto one day. KETTY/GIULIANO Voice ID: [id number] Report ID: [id number]
== END 2019-03-06 12:11 | disposition home or self-care (01) | DRG 310 ==
LOC: ER 17:49 → ERHOLD 21:07 → 2ND 21:46 → OBSVTOIN 03-05 11:30
PROVIDERS: ADMIT Internal Medicine; ATTEND Internal Medicine
DX: I48.91 Unspecified atrial fibrillation (principal); E78.5 Hyperlipidemia, unspecified; E66.9 Obesity, unspecified; Z68.33 Body mass index [BMI] 33.0-33.9, adult; E05.90 Thyrotoxicosis, unspecified without thyrotoxic crisis or storm
CPT/HCPCS: 36415; 71045; 80048; 80061; 80076; 81003; 83735; 83880; 84436; 84439; 84443; 84480; 84481; 84484; 85025; 85610; 86376; 86800; 93005; 93306; 96372; 96374; 99285; G0378; J1650; J7030